=== PATIENT | male | born 1995 | race American Indian/Alaskan Native ===

== ENCOUNTER 2017-07-16 07:41 | Emergency (ER) | payer SELFPAY ==
[2017-07-16 07:44] VITALS: BP 118/58
--- NOTE | 2017-07-16 08:53 | Emergency Department Report ---
ED Rash HPI - HPI Chief Complaint: Skin Rash Stated Complaint: RASH Time Seen by Provider: 07/16/17 08:35 Duration: 2 months Location: Lower Extremities, Other (face) Rash Symptoms: Yes Itching, No Facial Swelling, No Tongue/Oral Swelling, No Breathing Difficulties, No Choking Sensation, No Wheezing/Dyspnea, No Peeling, No Blistering, No Fever, No Lightheaded, No Malaise, No Myalgias Severity: mild Other History: This is a 21-year-old male nontoxic, well nourished in appearance , no acute signs of distress presents to the ED with c/o of bilateral lower extremity rythematous papules and pustules. Patient stated has history of acne but has not followed up with feather maker. Patient describes as itching and burning sensation. Patient denies any fever, chills, nausea, vomiting, chest pain, shortness of breath, headache, stiff neck, numbness or tingling. Patient denies any allergies or significant past medical history. ED Review of Systems ROS: Stated complaint: RASH Other details as noted in HPI Constitutional: denies: chills, fever Eyes: denies: eye pain, eye discharge, vision change ENT: denies: ear pain, throat pain Respiratory: denies: cough, shortness of breath, wheezing Cardiovascular: denies: chest pain, palpitations Endocrine: no symptoms reported Gastrointestinal: denies: abdominal pain, nausea, diarrhea Genitourinary: denies: urgency, dysuria Musculoskeletal: denies: back pain, joint swelling, arthralgia Skin: other (Erythematous papules and pustules rash). denies: rash, lesions Neurological: denies: headache, weakness, paresthesias Psychiatric: denies: anxiety, depression Hematological/Lymphatic: denies: easy bleeding, easy bruising ED Past Medical Hx - Past Medical History Additional medical history: Crohn's - Surgical History Past Surgical History?: No - Social History Smoking Status: Never Smoker Substance Use Type: None - Medications Home Medications: Home Medications Medication Instructions Recorded Confirmed Last Taken Type Prednisone [predniSONE 10 mg 10 mg PO .TAPER #1 tab.ds.pk 07/16/17 Unknown Rx (6-Day Pack, 21 Tabs)] Sulfamethoxazole/Trimethoprim 1 each PO BID #14 tablet 07/16/17 Unknown Rx [Bactrim DS TAB] diphenhydrAMINE [Benadryl CAP] 25 mg PO Q8HR PRN #20 capsule 07/16/17 Unknown Rx Rash Exam - Exam General: Vital signs noted. No distress. Alert and acting appropriately. HEENT: No Periorbital Edema, No Conjuctival Injection, No Chemosis, No Perioral Edema, No Tongue Edema, No Uvular Edema, No Compromised Airway, No Drooling Lungs: Yes Good Air Exchange (Normal Breath Sounds), No Wheezes, No Ronchi, No Stridor, No Cough, No Labored Respirations, No Retractions, No Use of Accessory Muscles, No Other Abnormal Lung Sounds Heart: Yes Regular, No Murmur Skin: Yes Other (Erythematous papules and pustules), No Urticarial Rash, No Maculopapular Rash, No Morbilliform rash, No Bulla(e), No Excoriations, No Weeping, No Tenderness, No Erythema, No Edema, No Encrustations Other: Positive: Abdomen Normal, Neurologic Normal, Musculoskeletal Normal ED Course Vital Signs 07/16/17 07:42 Temperature 98.6 F Pulse Rate 86 Respiratory 18 Rate Blood Pressure 118/58 O2 Sat by Pulse 100 Oximetry - Reevaluation(s) Reevaluation #1: 07/16/17 08:57 Patient is speaking in full sentences with no signs of distress noted. Critical care attestation.: If time is entered above; I have spent that time in minutes in the direct care of this critically ill patient, excluding procedure time. ED Disposition Clinical Impression: Acne vulgaris Disposition: DC-01 TO HOME OR SELFCARE Is pt being admited?: No Does the pt Need Aspirin: No Condition: Stable Additional Instructions: Follow-up with a primary care doctor in 3-5 days or if symptoms worsen and continue return to emergency room as soon as possible. Prescriptions: diphenhydrAMINE [Benadryl CAP] 25 mg PO Q8HR PRN #20 capsule PRN Reason: Itching Prednisone [predniSONE 10 mg (6-Day Pack, 21 Tabs)] 10 mg PO .TAPER #1 tab.ds.pk Sulfamethoxazole/Trimethoprim [Bactrim DS TAB] 1 each PO BID #14 tablet Referrals: PRIMARY CAREMD [Primary Care Provider] - 3-5 Days OLIVIA HOOK MD [Staff Physician] - 3-5 Days [facility] [Outside] - 3-5 Days [facility] [Outside] - 3-5 Days Forms: Work/School Release Form(ED)
== END 2017-07-16 09:12 | disposition home or self-care (01) ==
LOC: ED 07:41
DX: L70.0 Acne vulgaris (principal)
CPT/HCPCS: 99282

== ENCOUNTER 2017-10-14 02:01 | Emergency (ER) | payer SELFPAY ==
--- NOTE | 2017-10-14 07:52 | Emergency Department Report ---
ED Rash HPI - HPI Chief Complaint: Skin Rash Stated Complaint: RASH LOWER EXTREMITIES Time Seen by Provider: 10/14/17 07:18 Duration: 2 weeks Location: Lower Extremities (bilateral lower extremity) Suspected Cause: Unknown Rash Symptoms: Yes Blistering, No Facial Swelling, No Tongue/Oral Swelling, No Breathing Difficulties, No Choking Sensation, No Wheezing/Dyspnea, No Peeling, No Fever, No Lightheaded, No Malaise, No Myalgias Other History: This is a 22-year-old -[place] male who presents with a rash to bilateral lower extremities for 2 weeks. Past medical history of Crohn' s. Patient states he came to this emergency room 2 months ago with similar symptoms and was advised to follow-up with dermatology. Patient states he went to dermatology and waiting results but cannot tolerate pain. Patient states rash is from waist to ankle and bilateral lower extremities. There is some swelling and tenderness to touch with warmth. She reports pain as 10 out of 10 on pain scale and worse with touch. Patient states it is unbearable to even wear pain is or underwear. Rash is aggravated by touch. He states he hasn't a follow-up appointment with the federal agent tomorrow. Patient states pain is so bad he cannot wait until tomorrow. Patient denies drainage, itching, fever, nausea or vomiting, numbness or tingling. ED Review of Systems ROS: Stated complaint: RASH LOWER EXTREMITIES Other details as noted in HPI Constitutional: denies: chills, fever Respiratory: denies: cough, shortness of breath, wheezing Cardiovascular: denies: chest pain, palpitations Gastrointestinal: denies: abdominal pain, nausea, diarrhea Musculoskeletal: denies: back pain, joint swelling, arthralgia Skin: rash (rash to bilateral lower extremities). denies: lesions Neurological: denies: headache, weakness, paresthesias Psychiatric: denies: anxiety, depression ED Past Medical Hx - Past Medical History Additional medical history: Crohn's - Surgical History Past Surgical History?: No - Social History Smoking Status: Never Smoker Substance Use Type: None - Medications Home Medications: Home Medications Medication Instructions Recorded Confirmed Last Taken Type Prednisone [predniSONE 10 mg 10 mg PO .TAPER #1 tab.ds.pk 07/16/17 Unknown Rx (6-Day Pack, 21 Tabs)] diphenhydrAMINE [Benadryl CAP] 25 mg PO Q8HR PRN #20 capsule 07/16/17 Unknown Rx Clindamycin [Clindamycin CAP] 300 mg PO Q8H #21 cap 10/14/17 Unknown Rx Prednisone [predniSONE 10 mg 10 mg PO .TAPER #1 tab.ds.pk 10/14/17 Unknown Rx (6-Day Pack, 21 Tabs)] cephALEXin [Keflex] 500 mg PO Q12HR #20 cap 10/14/17 Unknown Rx Rash Exam - Exam General: Vital signs noted. No distress. Alert and acting appropriately. HEENT: No Periorbital Edema, No Conjuctival Injection, No Chemosis, No Perioral Edema, No Tongue Edema, No Uvular Edema, No Compromised Airway, No Drooling Lungs: Yes Good Air Exchange (Normal Breath Sounds), No Wheezes, No Ronchi, No Stridor, No Cough, No Labored Respirations, No Retractions, No Use of Accessory Muscles, No Other Abnormal Lung Sounds Heart: Yes Regular, No Murmur Skin: Yes Tenderness, Yes Erythema, Yes Edema, Yes Other (Erythematous papules and pustules), No Morbilliform rash, No Bulla(e), No Excoriations, No Weeping, No Encrustations Other: Positive: Abdomen Normal, Neurologic Normal, Musculoskeletal Normal ED Course Vital Signs 10/14/17 02:07 Temperature 98.0 F Pulse Rate 55 L Respiratory 18 Rate Blood Pressure 111/69 O2 Sat by Pulse 100 Oximetry ED Medical Decision Making - Medical Decision Making Patient was examined by myself in fast track. Vitals are normal and patient is in no acute distress. Physical findings susceptible acne vulgaris. Patient given dexamethasone 8 mg IM while in the ER. Start clindamycin and prednisone. Plan discussed with patient to discharge home and treat outpatient. He agrees with ER plan. Patient discharged home in stable condition. Follow up with federal agent in 24-48 hours. Critical care attestation.: If time is entered above; I have spent that time in minutes in the direct care of this critically ill patient, excluding procedure time. ED Disposition Clinical Impression: Cystic acne vulgaris Disposition: - TO HOME OR SELFCARE Is pt being admited?: No Does the pt Need Aspirin: No Condition: Stable Instructions: Antiacne Antibacterial (On the skin) Additional Instructions: Complete full course of antibiotics as prescribed. Follow-up with federal agent in 2-3 days. Prescriptions: cephALEXin [Keflex] 500 mg PO Q12HR #20 cap Clindamycin [Clindamycin CAP] 300 mg PO Q8H #21 cap Prednisone [predniSONE 10 mg (6-Day Pack, 21 Tabs)] 10 mg PO .TAPER #1 tab.ds.pk Referrals: [facility] [Provider Group] - 3-5 Days [facility] [Provider Group] - 3-5 Days Time of Disposition: 08:10 Print Language: TURKMEN
[2017-10-14] MEDS ORDERED: DECADRON IM ONE (08:13)
[2017-10-14 08:25] VITALS: BP 110/70
== END 2017-10-14 08:23 | disposition home or self-care (01) ==
LOC: ED 02:01
DX: L70.0 Acne vulgaris (principal); K50.90 Crohn's disease, unspecified, without complications
CPT/HCPCS: 96372; 99282; J1100

== ENCOUNTER 2018-05-17 20:57 | Emergency (ER) | payer OTHER ==
[2018-05-17 21:05] VITALS: BP 106/71
[2018-05-17] MEDS ORDERED: DECADRON IV ONE (23:32)
[2018-05-17] MEDS ORDERED: ATARAX PO ONE (23:32)
[2018-05-17] MEDS ORDERED: TYLENOL PO ONE (23:34)
--- NOTE | 2018-05-17 23:36 | Emergency Department Report ---
ED Rash HPI - HPI Chief Complaint: Skin Rash Stated Complaint: BODY PAIN Time Seen by Provider: 05/17/18 23:31 Duration: 2 weeks Suspected Cause: Other (Crohn's flareup) Rash Symptoms: Yes Itching Other History: -year-old -[place] male with a past medical history of Crohn's comes in complaining of rash to bilateral legs 2 weeks. Patient states that this is been going on off and on for many years. Patient reports she's been seen by the manufacturing supervisor 2nd shift and he usually has to have prednisone and antibiotic. Patient reports that this is intermittent. She reports that they've diagnosed him with chronic folliculitis. ED Review of Systems ROS: Stated complaint: BODY PAIN Other details as noted in HPI Comment: All other systems reviewed and negative Skin: rash ED Past Medical Hx - Past Medical History Previous Medical History?: Yes Additional medical history: Crohn's, Dermatitis - Surgical History Past Surgical History?: No - Social History Smoking Status: Never Smoker Substance Use Type: None - Medications Home Medications: Home Medications Medication Instructions Recorded Confirmed Last Taken Type diphenhydrAMINE [Benadryl CAP] 25 mg PO Q8HR PRN #20 capsule 07/16/17 Unknown Rx Clindamycin [Clindamycin CAP] 300 mg PO Q8H #21 cap 10/14/17 Unknown Rx Prednisone [predniSONE 10 mg 10 mg PO .TAPER #1 tab.ds.pk 01/08/18 Unknown Rx (6-Day Pack, 21 Tabs)] Prednisone [predniSONE 10 mg 10 mg PO .TAPER #1 tab.ds.pk 05/17/18 Unknown Rx (6-Day Pack, 21 Tabs)] Sulfamethoxazole/Trimethoprim 1 each PO BID #20 tablet 05/17/18 Unknown Rx [Bactrim DS TAB] cephALEXin [Keflex] 500 mg PO Q12HR #20 cap 05/17/18 Unknown Rx hydrOXYzine HCL [Atarax] 10 mg PO BID #30 tablet 05/17/18 Unknown Rx Rash Exam - Exam General: Vital signs noted. No distress. Alert and acting appropriately. HEENT: No Periorbital Edema, No Conjuctival Injection, No Chemosis, No Perioral Edema, No Tongue Edema, No Uvular Edema, No Compromised Airway, No Drooling Lungs: Yes Good Air Exchange (Normal Breath Sounds), No Wheezes, No Ronchi, No Stridor, No Cough, No Labored Respirations, No Retractions, No Use of Accessory Muscles, No Other Abnormal Lung Sounds Heart: Yes Regular, No Murmur Skin: Yes Excoriations, Yes Tenderness, Yes Erythema, Yes Other (pus filled the pimple like rash on a red base) Other: Positive: Abdomen Normal ED Course Vital Signs 05/17/18 21:04 Temperature 99.1 F Pulse Rate 108 H Respiratory 18 Rate Blood Pressure 106/71 O2 Sat by Pulse 99 Oximetry Critical care attestation.: If time is entered above; I have spent that time in minutes in the direct care of this critically ill patient, excluding procedure time. ED Disposition Clinical Impression: Bacterial folliculitis Disposition: - TO HOME OR SELFCARE Is pt being admited?: No Does the pt Need Aspirin: No Condition: Stable Instructions: Acute Rash (ED) Additional Instructions: Please complete antibiotics and steroids as prescribed. You can take [id number] Tylenol for pain. Prescriptions: hydrOXYzine HCL [Atarax] 10 mg PO BID #30 tablet Sulfamethoxazole/Trimethoprim [Bactrim DS TAB] 1 each PO BID #20 tablet cephALEXin [Keflex] 500 mg PO Q12HR #20 cap Prednisone [predniSONE 10 mg (6-Day Pack, 21 Tabs)] 10 mg PO .TAPER #1 tab.ds.pk Referrals: [facility] [Other] - 3-5 Days
== END 2018-05-18 00:17 | disposition home or self-care (01) ==
LOC: ED 20:57
DX: L73.8 Other specified follicular disorders (principal); B96.89 Other specified bacterial agents as the cause of diseases classified elsewhere
CPT/HCPCS: 96374; 99282; J1100

== ENCOUNTER 2018-09-13 11:17 | Emergency (ER) | payer SELFPAY ==
[2018-09-13 11:27] VITALS: BP 116/61
--- NOTE | 2018-09-13 11:32 | Emergency Department Report ---
ED Rash HPI - [facility] Chief Complaint: Skin Rash Stated Complaint: MED REFILL/LEG DISEASE/PAIN Time Seen by Provider: 09/13/18 11:29 Duration: 3 Days Location: Lower Extremities Suspected Cause: Unknown Rash Symptoms: Yes Itching, Yes Peeling, Yes Blistering, No Facial Swelling, No Tongue/Oral Swelling, No Breathing Difficulties, No Choking Sensation, No Wheezing/Dyspnea, No Fever, No Lightheaded, No Malaise, No Myalgias Severity: severe Other History: h/o frequent episodes of foliculitis, presents to er with lower ext. redness, swelling, pruritis, in hair follicles. no fever, no malaise, has not taken any medication for symptoms. ED Review of Systems ROS: Stated complaint: MED REFILL/LEG DISEASE/PAIN Other details as noted in HPI ED Past Medical Hx - Past Medical History Previous Medical History?: Yes Additional medical history: Crohn's, Dermatitis - Surgical History Past Surgical History?: No - Social History Smoking Status: Never Smoker Substance Use Type: None - Medications Home Medications: Home Medications Medication Instructions Recorded Confirmed Last Taken Type diphenhydrAMINE [Benadryl CAP] 25 mg PO Q8HR PRN #20 capsule 07/16/17 Unknown Rx Clindamycin [Clindamycin CAP] 300 mg PO Q8H #21 cap 10/14/17 Unknown Rx Prednisone [predniSONE 10 mg 10 mg PO .TAPER #1 tab.ds.pk 01/08/18 Unknown Rx (6-Day Pack, 21 Tabs)] cephALEXin [Keflex] 500 mg PO Q12HR #20 cap 05/17/18 Unknown Rx Mupirocin [Bactroban 2%] 1 applic TP TID 30 Days #1 tube 09/13/18 Unknown Rx Prednisone [predniSONE 10 mg 10 mg PO .TAPER #1 tab.ds.pk 09/13/18 Unknown Rx (6-Day Pack, 21 Tabs)] Sulfamethoxazole/Trimethoprim 1 each PO BID #20 tablet 09/13/18 Unknown Rx [Bactrim DS TAB] Triamcinolone 0.5% [Kenalog 0.5% 1 applic TP TID 30 Days #1 tube 09/13/18 Unknown Rx CREAM] hydrOXYzine HCL [Atarax] 10 mg PO BID #30 tablet 09/13/18 Unknown Rx Rash Exam - Exam General: Vital signs noted. No distress. Alert and acting appropriately. HEENT: No Periorbital Edema, No Conjuctival Injection, No Chemosis, No Perioral Edema, No Tongue Edema, No Uvular Edema, No Compromised Airway, No Drooling Lungs: No Good Air Exchange, No Wheezes, No Ronchi, No Stridor, No Cough, No Labored Respirations, No Retractions, No Use of Accessory Muscles, No Other Abnormal Lung Sounds Heart: No Regular, No Murmur Skin: Yes Urticarial Rash, Yes Tenderness, Yes Erythema, Yes Encrustations, No Maculopapular Rash, No Morbilliform rash, No Bulla(e), No Excoriations, No Weeping, No Other ED Course Vital Signs 09/13/18 11:21 Temperature 97.9 F Pulse Rate 81 Respiratory 18 Rate Blood Pressure 116/61 O2 Sat by Pulse 100 Oximetry Critical care attestation.: If time is entered above; I have spent that time in minutes in the direct care of this critically ill patient, excluding procedure time. ED Disposition Clinical Impression: Bacterial folliculitis Disposition: DC- TO HOME OR SELFCARE Is pt being admited?: No Does the pt Need Aspirin: No Condition: Stable Instructions: Folliculitis (ED) Prescriptions: hydrOXYzine HCL [Atarax] 10 mg PO BID #30 tablet Sulfamethoxazole/Trimethoprim [Bactrim DS TAB] 1 each PO BID #20 tablet Mupirocin [Bactroban 2%] 1 applic TP TID 30 Days #1 tube Triamcinolone 0.5% [Kenalog 0.5% CREAM] 1 applic TP TID 30 Days #1 tube Prednisone [predniSONE 10 mg (6-Day Pack, 21 Tabs)] 10 mg PO .TAPER #1 tab.ds.pk
== END 2018-09-13 11:55 | disposition home or self-care (01) ==
LOC: ED 11:17
DX: L73.9 Follicular disorder, unspecified (principal)
CPT/HCPCS: 99282